=== PATIENT | female | born 2005 | race Hispanic/Latino ===

== ENCOUNTER 2025-04-25 08:54 | Inpatient (IN) | payer OTHER ==
[2025-04-25] MEDS ORDERED: hydrALAZINE 20 MG/ML VIAL SLOW IVP PRN ×3 (10:08→21:10)
[2025-04-25] MEDS ORDERED: Carboprost 250 MCG/ML AMP IM PRN (10:19)
[2025-04-25] MEDS ORDERED: Tranexamic Acid 1,000 MG/10 ML VIAL IVP PRN (10:19)
[2025-04-25] MEDS ORDERED: Diphenoxylate HCl/Atropine Tablet PO PRN (10:19)
[2025-04-25] MEDS ORDERED: Ibuprofen 800 MG TAB PO PRN (10:19)
[2025-04-25] MEDS ORDERED: Methylergonovine 0.2 MG/ML VIAL IM PRN (10:19)
[2025-04-25] MEDS ORDERED: Ondansetron PF 4 MG/2 ML Vial IVP PRN ×2 (10:19→13:46)
[2025-04-25 10:25] VITALS: BMI 39.2
[2025-04-25] MEDS ORDERED: Oxytocin 30 units/NS 500 ML 500 ML IV SCH ×2 (10:30)
[2025-04-25 10:39] LABS: Hematocrit 38.1 % (34.9-44.5); Hemoglobin 12.6 g/dL (12.0-15.5); Mean Corpuscular Hemoglobin 28.0 pg (27.0-33.0); Mean Corpuscular Volume 84.7 fL (81.6-98.3); Platelet Count 223 10x3/uL (150-450); Red Blood Cell (RBC) Count 4.50 10x6/uL (3.90-5.03); White Blood Cell (WBC) Count 17.63 10x3/uL (3.5-10.5)
[2025-04-25 11:12] LABS: Hep B Surf Ag - L&D Non-Reactive S/CO (NonReactive)
[2025-04-25 11:13] LABS: Syphilis Antibody Index 0.04 S/CO (<1.00 Non-Reactive)
[2025-04-25] MEDS: fentaNYL/Ropivacaine Epidural 100 ML ONE (11:23)
[2025-04-25] MEDS ORDERED: diphenhydrAMINE 50 MG/ML VIAL IVP PRN (13:46)
[2025-04-25] MEDS ORDERED: Communication Order-Pharmacy FS SCH (14:00)
[2025-04-25] MEDS ORDERED: fentaNYL 2 mcg/Ropivacaine 0.2% Epidural 100 ML CADD EPIDURAL SCH (14:00)
[2025-04-25 15:21] LABS: #Basophils Less than 0.03 10x3/uL (0.0-0.2); #Eosinophils Less than 0.03 10x3/uL (0.0-0.5); #Monocytes 1.06 10x3/uL (0.0-1.1); #Neutrophils 13.58 10x3/uL (1.5-8.4); %Basophils 0.1 % (0.0-2.0); %Eosinophils 0.1 % (0.0-6.0); %Lymphocytes 11.4 % (18.0-47.0); %Monocytes 6.4 % (0.0-10.0); %Neutrophils 81.5 % (40.0-75.0); Hematocrit 33.4 % (34.9-44.5); Hemoglobin 11.0 g/dL (12.0-15.5); Mean Corpuscular Hemoglobin 27.9 pg (27.0-33.0); Mean Corpuscular Volume 84.8 fL (81.6-98.3); Platelet Count 189 10x3/uL (150-450); Red Blood Cell (RBC) Count 3.94 10x6/uL (3.90-5.03); White Blood Cell (WBC) Count 16.65 10x3/uL (3.5-10.5)
[2025-04-25 15:28] LABS: Protein, Urine Random Quant 73.0 mg/dL (1-14)
[2025-04-25 15:35] LABS: ALT (SGPT) 13 U/L (Less than 34); AST (SGOT) 19 U/L (11-34); Albumin 2.7 g/dL (3.1-4.5); Alkaline Phosphatase 154 U/L (40-110); Anion Gap 14 mmol/L (10-20); BUN (Urea Nitrogen) 9 mg/dL (7.0-18.7); Bilirubin, Total 0.4 mg/dL (0.3-1.2); Calc. Creatinine Clearance 237 mL/min (70-130); Calcium 8.8 mg/dL (7.8-10.44); Carbon Dioxide 19 mmol/L (22-29); Chloride 106 mmol/L (98-107); Globulin 3.6 g/dL (2.4-3.5); Glucose 82 mg/dL (70-105); Potassium 3.9 mmol/L (3.5-5.1); Sodium 135 mmol/L (136-145)
[2025-04-25] MEDS: Clindamycin/D5W 900 MG in Premix 1 BAG IVPB SCH (19:29)
[2025-04-25] MEDS: Acetaminophen 325 MG TAB PO PRN (20:06)
[2025-04-25] MEDS: GENTAMICIN SULFATE IVPB SCH (20:11)
[2025-04-25] MEDS: SODIUM CHLORIDE 0.9% IVPB SCH (20:11)
[2025-04-25] MEDS: Lidocaine 1% (PF) 30 ML VIAL SC PRN (20:56)
[2025-04-25] MEDS ORDERED: Milk Of Magnesia 30 ML UDCUP PO PRN (21:10)
[2025-04-25] MEDS ORDERED: Bisacodyl 10 MG SUPP PR PRN (21:10)
[2025-04-25] MEDS ORDERED: Lanolin Ointment 7 GM TUBE TOP PRN (21:10)
[2025-04-25] MEDS ORDERED: Preparation H Ointment 28 GM TUBE PR PRN (21:10)
[2025-04-25 21:21] LABS: Analyzer IN Cardio CS NICU; Critical Notified By: CP.PH; RapidComm Collect By CBN; pH (Cord, venous) 7.288 (7.250-7.350)
[2025-04-26] MEDS: Clindamycin/D5W 900 MG in Premix 1 BAG IVPB SCH (04:06)
[2025-04-26] MEDS: Ferrous Sulfate 325 MG TAB PO SCH (08:58)
[2025-04-26] MEDS: Benzocaine-Menthol 82.5 ML CAN TOP PRN (09:00)
[2025-04-26] MEDS: Ibuprofen 800 MG TAB PO PRN (13:03)
[2025-04-27 05:56] LABS: #Basophils 0.03 10x3/uL (0.0-0.2); #Eosinophils 0.14 10x3/uL (0.0-0.5); #Monocytes 0.83 10x3/uL (0.0-1.1); #Neutrophils 8.60 10x3/uL (1.5-8.4); %Basophils 0.2 % (0.0-2.0); %Eosinophils 1.1 % (0.0-6.0); %Lymphocytes 22.2 % (18.0-47.0); %Monocytes 6.7 % (0.0-10.0); %Neutrophils 69.3 % (40.0-75.0); Hematocrit 31.4 % (34.9-44.5); Hemoglobin 10.1 g/dL (12.0-15.5); Mean Corpuscular Hemoglobin 28.5 pg (27.0-33.0); Mean Corpuscular Volume 88.5 fL (81.6-98.3); Platelet Count 159 10x3/uL (150-450); Red Blood Cell (RBC) Count 3.55 10x6/uL (3.90-5.03); White Blood Cell (WBC) Count 12.41 10x3/uL (3.5-10.5)
[2025-04-28 12:28] VITALS: BP 129/66; TEMP 98.2
== END 2025-04-28 12:25 | disposition home or self-care (01) | DRG 806 ==
LOC: CSHLD/OP 08:54 → CSHLD 09:38 → CSHPP 04-26 00:30
PROVIDERS: ADMIT Family Medicine; ATTEND Family Medicine
PROC: 10E0XZZ Delivery of Products of Conception, External Approach (ICD-10-PCS; principal; 2025-04-25)
PROC: 0KQM0ZZ Repair Perineum Muscle, Open Approach (ICD-10-PCS; 2025-04-25)
PROC: 10907ZC Drainage of Amniotic Fluid, Therapeutic from Products of Conception, Via Natural or Artificial Opening (ICD-10-PCS; 2025-04-25)
PROC: 10H07YZ Insertion of Other Device into Products of Conception, Via Natural or Artificial Opening (ICD-10-PCS; 2025-04-25)
DX: O24.425 Gestational diabetes mellitus in childbirth, controlled by oral hypoglycemic drugs (principal); O71.4 Obstetric high vaginal laceration alone; Z37.0 Single live birth; Z3A.36 36 weeks gestation of pregnancy; O99.214 Obesity complicating childbirth; O66.0 Obstructed labor due to shoulder dystocia; O76 Abnormality in fetal heart rate and rhythm complicating labor and delivery; O14.04 Mild to moderate pre-eclampsia, complicating childbirth
CPT/HCPCS: 36415; 36416; 51702; 80053; 82570; 82805; 82951; 84156; 85025; 85027; 86780; 86850; 86900; 86901; 87340; 88307; 99285; J1580; J1815; J3490; J7120